=== PATIENT | female | born 1955 | race Caucasian/White ===

== ENCOUNTER 2023-06-24 09:11 | Emergency (ER) | payer MEDICARE, OTHER ==
[2023-06-24] MEDS ORDERED: Amoxicillin/Potassium Clav 875 MG TAB ONE (10:08)
[2023-06-24] MEDS ORDERED: Boostrix 0.5 ML (Tdap) VIAL (>/=7 yrs of age) ONE (10:09)
== END 2023-06-24 10:28 | disposition home or self-care (01) ==
LOC: MADERS 09:11
DX: T16.2XXA Foreign body in left ear, initial encounter (principal); H60.502 Unspecified acute noninfective otitis externa, left ear; H66.92 Otitis media, unspecified, left ear; H61.22 Impacted cerumen, left ear; S00.412A Abrasion of left ear, initial encounter; I10 Essential (primary) hypertension; E78.00 Pure hypercholesterolemia, unspecified; Z79.899 Other long term (current) drug therapy; Z23 Encounter for immunization; W44.8XXA Other foreign body entering into or through a natural orifice, initial encounter
CPT/HCPCS: 69200; 90471; 90715